=== PATIENT | female | born 1930 | race Caucasian/White ===

== ENCOUNTER 2017-10-12 08:02 | Emergency (ER) | payer MEDICARE, MEDICAID ==
[~2017-10-12] VITALS: Ht 162.6 cm; Wt 74.0 kg
[2017-10-12] MEDS ORDERED: ATOR40TA70 PO (08:21)
[2017-10-12] MEDS ORDERED: CLOTRIMAZOLE (08:21)
[2017-10-12] MEDS ORDERED: ALBU18HF2 IH (08:21)
[2017-10-12] MEDS ORDERED: TRAM50TA3 PO (08:21)
[2017-10-12] MEDS ORDERED: FURO-151 PO (08:21)
[2017-10-12] MEDS ORDERED: TRIA15OI8 TP (08:21)
[2017-10-12] MEDS ORDERED: APIX5TAB4 PO (08:21)
[2017-10-12] MEDS ORDERED: HYDROCODONE/ACETAMINOPHEN 5/325MG TABLET PO ONE (09:00)
[2017-10-12 09:19] LABS: CHLORIDE 100 mEq/L (98-107)
[2017-10-12 09:21] LABS: INR 1.3; PROTHROMBIN TIME 13.1 sec (9.4-11.6)
[2017-10-12 09:31] LABS: HEMATOCRIT. 40.6 % (36.0-48.0); HEMOGLOBIN. 12.8 g/dL (12.0-16.0); MEAN CORPUSCULAR HEMOGLOBIN 24.3 pg (28.0-32.0); MEAN CORPUSCULAR VOLUME 76.9 fL (81.0-99.0); PLATELET 239 x1000/uL (130-400); RED BLOOD CELL COUNT 5.29 mill/uL (4.2-5.4); RED CELL DISTRIBUTION WIDTH 21.9 % (11.6-14.6)
[2017-10-12 09:55] LABS: PLATELET ESTIMATE NORMAL
[2017-10-12 12:19] VITALS: BP 131/51
== END 2017-10-12 12:20 | disposition home or self-care (01) ==
LOC: ER 10:11
DX: R53.1 Weakness (principal); I10 Essential (primary) hypertension; Z88.6 Allergy status to analgesic agent; Z86.718 Personal history of other venous thrombosis and embolism; Z79.01 Long term (current) use of anticoagulants; Z90.710 Acquired absence of both cervix and uterus; Z87.891 Personal history of nicotine dependence
CPT/HCPCS: 36415; 80053; 85025; 85610; 93970; 99285

== ENCOUNTER 2019-05-17 11:22 | Emergency (ER) | payer MEDICARE, OTHER ==
[~2019-05-17] VITALS: Ht 162.6 cm; Wt 70.0 kg
[~2019-05-17 11:22] MED LIST: ALBU18HF2 IH; APIX5TAB4 PO; ATOR40TA70 PO; CLOTRIMAZOLE; FURO-151 PO; TRAM50TA3 PO; TRIA15OI8 TP
[2019-05-17] MEDS ORDERED: KETOROLAC 30MG/ML VIAL IV STA (11:48)
[2019-05-17] MEDS ORDERED: ONDANSETRON HCL 4MG/2ML INJ IV STA (11:48)
[2019-05-17] MEDS ORDERED: SODIUM CHLORIDE 0.9% 1,000 ML IV ONE (11:48)
[2019-05-17 12:33] LABS: HEMATOCRIT. 44.9 % (36.0-48.0); HEMOGLOBIN. 14.6 g/dL (12.0-16.0); MEAN CORPUSCULAR HEMOGLOBIN 28.1 pg (28.0-32.0); MEAN CORPUSCULAR VOLUME 86.2 fL (81.0-99.0); MEAN PLATELET VOLUME 9.3 fl (7.4-10.4); PLATELET 157 x1000/uL (130-400); RED BLOOD CELL COUNT 5.21 mill/uL (4.2-5.4); RED CELL DISTRIBUTION WIDTH 16.4 % (11.6-14.6)
[2019-05-17 12:37] LABS: CHLORIDE 103 mEq/L (98-107)
[2019-05-17 13:06] LABS: PLATELET ESTIMATE NORMAL
[2019-05-17 13:46] LABS: INR 1.2; PROTHROMBIN TIME 12.2 sec (9.6-11.0)
[2019-05-17 14:22] VITALS: BP 170/69
== END 2019-05-17 14:23 | disposition home or self-care (01) ==
LOC: ER 11:22
DX: R10.12 Left upper quadrant pain (principal); R10.11 Right upper quadrant pain; R11.2 Nausea with vomiting, unspecified
CPT/HCPCS: 36415; 74176; 80053; 83690; 85025; 85610; 96361; 96374; 96375; 99284; J1885; J2405; J7030